=== PATIENT | female | born 1960 | race Caucasian/White ===

== ENCOUNTER 2017-04-10 06:59 | Day surgery (SDC) | payer OTHER ==
[~2017-04-10] VITALS: Ht 167.6 cm; Wt 58.1 kg
[~2017-04-10 06:59] MED LIST: ALPRAZOLAM1 MG PO; BENTYL10 MG PO; CINNAMON500 M1 PO; FIORICET PO; ISOMETHEPTENE PO; OMEPRAZOLE20 MG PO; PHRENILIN1 TAB PO; VITAMIN B-12100 MCG PO; VITAMIN D1000 UNI1 PO; ZINC50 MG PO; ZOVIRAX400 MG PO; [UNRECOGNIZED DRUG - OTHER] PO
[2017-04-10] MEDS ORDERED: PERCOCET 5/325M1 TAB PO (12:28)
[2017-04-10] MEDS ORDERED: LIDOCAINE22 EX (12:28)
[2017-04-10 13:43] VITALS: BP 119/61
== END 2017-04-10 12:48 | disposition home or self-care (01) | DRG 349 ==
LOC: ORM 06:59 → ENDO 06:59 → ORM 10:00
PROVIDERS: ATTEND Surgery
PROC: 06BY3ZC Excision of Hemorrhoidal Plexus, Percutaneous Approach (ICD-10-PCS; principal; 2017-04-10)
DX: K64.4 Residual hemorrhoidal skin tags (principal)

== ENCOUNTER 2019-09-03 07:47 | Day surgery (SDC) | payer MEDICARE ==
[~2019-09-03] VITALS: Ht 167.6 cm; Wt 57.6 kg
[~2019-09-03 07:47] MED LIST changes: +CINNAMON500 MG PO; +GARLIC OIL; +IMITREX100 M1 PO; +LIDOCAINE22 EX; +OMEPRAZOLE DR40 MG PO; +PERCOCET 5/325M1 TAB PO; +PROBIOTI2; +XANAX1 MG PO; +ZINC MT; +ZINC PO
[2019-09-03 08:22] LABS: BARBITURATES NEGATIVE (NEGATIVE); COCAINE NEGATIVE (NEGATIVE); METHADONE NEGATIVE (NEGATIVE); OXCYCODONE NEGATIVE (NEGATIVE); TETRAHYDROCANNABIONOL POSITIVE (NEGATIVE); TRICYLIC ANTIDEPRESSANTS NEGATIVE (NEGATIVE)
[2019-09-03 09:46] VITALS: BP 121/56
== END 2019-09-03 09:57 | disposition home or self-care (01) ==
LOC: ENDO 07:47
PROVIDERS: ATTEND Surgery
PROC: 0DBN8ZX Excision of Sigmoid Colon, Via Natural or Artificial Opening Endoscopic, Diagnostic (ICD-10-PCS; principal; 2019-09-03)
DX: K63.5 Polyp of colon (principal); K57.31 Diverticulosis of large intestine without perforation or abscess with bleeding; K64.8 Other hemorrhoids; Z86.010 Personal history of colon polyps